=== PATIENT | male | born 1985 | race Caucasian/White ===

== ENCOUNTER 2022-04-13 19:38 | Inpatient (IN) | payer OTHER, SELFPAY ==
--- NOTE | 2022-04-13 | ECG_ITS ---
Test Reason : MEDCLEARANCE Blood Pressure : / mmHG Vent. Rate : 054 BPM Atrial Rate : 054 BPM P-R Int : 148 ms QRS Dur : 082 ms QT Int : 394 ms P-R-T Axes : 039 026 017 degrees QTc Int : 373 ms Sinus bradycardia with sinus arrhythmia Cannot rule out Anterior infarct , age undetermined Abnormal ECG When compared with ECG of 15-MAR-2008 01:00, ST no longer elevated in Inferior leads ST no longer elevated in Anterior leads Nonspecific T wave abnormality now evident in Inferior leads Nonspecific T wave abnormality now evident in Lateral leads Referred By: Meagan Heath Electronically Signed By:KASHIF PARRISH MD
[2022-04-13 20:11] VITALS: BP 101/72; PULSE 64; RESP 18; TEMP 36.7; O2SAT 95; BMI 30.7
[2022-04-13 20:26] VITALS: BP 102/66; PULSE 58; RESP 16; TEMP 36.6; O2SAT 97
[2022-04-13 20:54] LABS: MANUAL DIFF FLAG NO
[2022-04-13 20:55] LABS: Basophils Percent Auto 0.4 % (0-2); Eosinophils Absolute Auto 0.3 X10*3/uL (0.0-0.4); Eosinophils Percent Auto 3.8 % (0-4); Hematocrit 53.3 % (42.0-52.0); Hemoglobin 17.1 g/dl (14.0-18.0); Imm Gran Abs Auto 0.02 X10*3/uL (0.00-0.03); Imm Gran Pct Auto 0.3 % (0.0-0.4); Lymphocytes Absolute Auto 3.1 X10*3/uL (1.2-4.9); Lymphocytes Percent Auto 41.7 % (20-40); Mean Corpuscular HGB Conc 32.1 g/dl (31.0-36.0); Mean Corpuscular Hemoglobin 28.5 pg (27.0-33.0); Mean Corpuscular Volume 88.8 fL (80.0-98.0); Mean Platelet Volume 9.1 fL (9.4-12.4); Monocytes Absolute Auto 0.6 X10*3/uL (0.1-1.2); Monocytes Percent Auto 7.8 % (2-11); Neutrophils Absolute Auto 3.4 x10*3/uL (2.0-8.3); Platelet Count 314 X10*3/uL (160-400); Red Cell Distribution Width 12.8 % (11.0-16.0); White Blood Count 7.4 X10*3/uL (4.8-10.8)
[2022-04-13 20:59] LABS: Amphetamine Screen Urine Not Detected (Not Detect); Barbiturates, Urine Not Detected (Not Detect); Benzodiazepines Screen Urine Not Detected (Not Detect); Cannabinoid Screen Urine Not Detected (Not Detect); Cocaine Screen Urine POSITIVE (Not Detect); Fentanyl, urine Not Detected (Not Detect); Opiate Screen Urine Not Detected (Not Detect); Phencyclidine Screen Urine Not Detected (Not Detect)
[2022-04-13 21:15] LABS: COVID-19 Test Negative (Negative)
[2022-04-13 21:17] LABS: Ethanol < 10 mg/dL
[2022-04-13 21:22] LABS: Anion Gap 10 (12-20); Blood Urea Nitrogen 14 mg/dL (9-16); Calcium 9.8 mg/dL (8.4-10.2); Carbon Dioxide 34 mmol/L (22-29); Chloride 102 mmol/L (96-108); Creatinine Clr Calc Pharmacy 87.6; Estimated Glomerular Filt Rate > 60; Glucose Random 87 mg/dL (60-115); Magnesium 2.3 mg/dL (1.6-2.6); Sodium 141 mmol/L (135-145)
[2022-04-13 21:34] LABS: Acetaminophen LAB < 1 mcg/mL (<30); Salicylate < 5.0 mg/dL (15-30)
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
[2022-04-14] MEDS: traZODone HCL 50 MG TABLET PO (00:28)
[2022-04-14] MEDS: Sertraline HCL 50 MG TABLET PO ×2 (00:29→08:57)
[2022-04-14] MEDS: hydrOXYzine HCL 25 MG TABLET PO (00:29)
[2022-04-14 01:52] VITALS: BP 102/66; PULSE 58; RESP 16; TEMP 36.6; O2SAT 97
--- NOTE | 2022-04-14 01:55 | PC.NURSE ---
Pt signed a 3 day, up on 04/16/22
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
[2022-04-14] MEDS: QUEtiapine Fumarate 200 MG TABLET PO (08:57)
[2022-04-14] MEDS: Omeprazole 40 MG CAPSULE.DR PO (08:57)
[2022-04-14 09:00] VITALS: BP 94/52; PULSE 50; TEMP 36.1; O2SAT 98
[2022-04-14 09:19] LABS: Cholesterol 195 mg/dL; HDL Cholesterol 37 mg/dL; LDL Cholesterol Calculated 110 mg/dl; Magnesium 2.3 mg/dL (1.6-2.6); Triglycerides 243 mg/dL
[2022-04-14 09:31] LABS: Free T4 (Free Thyroxine) 1.05 ng/dL (0.71-1.85); Thyroid Stimulating Hormone 0.94 uIU/mL (0.32-4.0)
[2022-04-14 09:43] LABS: Estimated Average Glucose 103 mg/dL; Hemoglobin A1c % 5.2 %
[2022-04-14 09:58] LABS: Folate 8.2 ng/mL (> or = 4.0); Vitamin B12 494 pg/mL (200-900)
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
[2022-04-14] MEDS: methADONE HCl 20 MG/2 ML ORAL.CONC 55 MG PO (11:50)
[2022-04-14 21:25] VITALS: BP 98/59; PULSE 72; TEMP 36.6
[2022-04-14] MEDS: Mirtazapine 15 MG TABLET 45 MG PO (21:29)
[2022-04-14] MEDS: cloNIDine HCL 0.2 MG TABLET PO (21:30)
[2022-04-15 10:00] VITALS: BP 112/56; PULSE 54; RESP 16; TEMP 36.6; O2SAT 95
[2022-04-15] MEDS: cloNIDine HCL 0.2 MG TABLET PO ×2 (10:30→21:09)
[2022-04-15] MEDS: methADONE HCl 20 MG/2 ML ORAL.CONC 55 MG PO (10:30)
[2022-04-15] MEDS: Sertraline HCL 50 MG TABLET PO (10:31)
[2022-04-15] MEDS: Omeprazole 40 MG CAPSULE.DR PO (10:31)
--- NOTE | 2022-04-15 15:01 | P.PNPSI_ITS ---
Subjective Subjective Date of Service: 04/15/22 Reason For Visit: sent here for respite care Interim History: Patient says that he is in a good mood. He says that he normally stays away fr om people so has mostly wanted to remain in his room by himself which he says is typical for him. Patient denies any SI, HI or AVH. He says that he is pretty much back to his regular self and is looking forward to discharging. Patient can tell that he is feeling better because he is sleeping well, eating well and overall feels better. He agrees to increase his Zoloft to 75 mg since he remains prone to getting angry easily which he says can upset his . He denies any medication complaints. His 3 day notice is due tomorrow and he is looking for to discharge Mental Status Exam Mental Status Exam Narrative: Pt is alert and oriented; behavior is cooperative, friendly, calm; patient lying in bed but is appropriately engaged and and interacting with check writer; dressed in casual attire, multiple tattoos, with unkempt hair but adequate hygiene; mood is described as better and affect congruent, brighter; good eye contact; Speech is normal rate, but quiet; no psychomotor retardation present; thought process is organized and goal directed; Thought content is on tx; otherwise pertinent to relevant topics and without any delusional content, paranoid ideations or grandiosity; denies any SI/HI. no mention of AVH or illusions; Patients insight and judgment are intact. Diagnostics Vital Signs (24Hr): Vital Signs - 24 hr 04/14/22 21:25 04/15/22 10:00 Temperature 97.9 F 97.8 F Pulse Rate 72 54 Respiratory Rate 16 Blood Pressure 98/59 L 112/56 L Pulse Oximetry 95 Oxygen Delivery Method Room Air BMI result Body Mass Index 30.7 Labs Results: 04/13/22 20:50 04/13/22 20:50 Labs: Laboratory Results - last 48 hr 04/13/22 04/13/22 04/13/22 20:38 20:38 20:50 WBC 7.4 RBC 6.00 H Hgb 17.1 Hct 53.3 H MCV 88.8 MCH 28.5 MCHC 32.1 RDW 12.8 Plt Count 314 MPV 9.1 L Immature Gran % (Auto) 0.3 Neut % (Auto) 46.0 Lymph % (Auto) 41.7 H [place] % (Auto) 7.8 Eos % (Auto) 3.8 Baso % (Auto) 0.4 Lymph # (Auto) 3.1 [place] # (Auto) 0.6 Eos # (Auto) 0.3 Baso # (Auto) 0.0 Abs Immat Gran (auto) 0.02 Absolute Neuts (auto) 3.4 Absolute Nucleated RBC 0.000 Nucleated RBC % (auto) 0.0 Sodium Potassium Chloride Carbon Dioxide Anion Gap BUN Creatinine Estim Creat Clear Calc Estimated GFR Random Glucose Estimat Average Glucose Hemoglobin A1c % Calcium Magnesium Triglycerides Cholesterol LDL Cholesterol, Calc HDL Cholesterol Vitamin B12 Folate TSH Free T4 Salicylates Urine Opiates Screen Not Detected Urine Fentanyl Screen Not Detected Acetaminophen Ur Barbiturates Screen Not Detected Ur Phencyclidine Scrn Not Detected Ur Amphetamines Screen Not Detected U Benzodiazepines Scrn Not Detected Urine Cocaine Screen POSITIVE H U Marijuana (THC) Screen Not Detected Ethyl Alcohol COVID-19 (SANJAY) Negative COVID-19 FAD ? IO See Note 04/13/22 04/13/22 04/14/22 20:50 20:50 08:31 WBC RBC Hgb Hct MCV MCH MCHC RDW Plt Count MPV Immature Gran % (Auto) Neut % (Auto) Lymph % (Auto) [place] % (Auto) Eos % (Auto) Baso % (Auto) Lymph # (Auto) [place] # (Auto) Eos # (Auto) Baso # (Auto) Abs Immat Gran (auto) Absolute Neuts (auto) Absolute Nucleated RBC Nucleated RBC % (auto) Sodium 141 Potassium 5.0 Chloride 102 Carbon Dioxide 34 H Anion Gap 10 L BUN 14 Creatinine 1.24 Estim Creat Clear Calc 87.6 Estimated GFR > 60 Random Glucose 87 Estimat Average Glucose 103 Hemoglobin A1c % 5.2 Calcium 9.8 Magnesium 2.3 Triglycerides Cholesterol LDL Cholesterol, Calc HDL Cholesterol Vitamin B12 Folate TSH Free T4 Salicylates < 5.0 L Urine Opiates Screen Urine Fentanyl Screen Acetaminophen < 1 Ur Barbiturates Screen Ur Phencyclidine Scrn Ur Amphetamines Screen U Benzodiazepines Scrn Urine Cocaine Screen U Marijuana (THC) Screen Ethyl Alcohol < 10 COVID-19 (SANJAY) COVID-19 [employer] 04/14/22 04/14/22 08:31 08:31 WBC RBC Hgb Hct MCV MCH MCHC RDW Plt Count MPV Immature Gran % (Auto) Neut % (Auto) Lymph % (Auto) [place] % (Auto) Eos % (Auto) Baso % (Auto) Lymph # (Auto) [place] # (Auto) Eos # (Auto) Baso # (Auto) Abs Immat Gran (auto) Absolute Neuts (auto) Absolute Nucleated RBC Nucleated RBC % (auto) Sodium Potassium Chloride Carbon Dioxide Anion Gap BUN Creatinine Estim Creat Clear Calc Estimated GFR Random Glucose Estimat Average Glucose Hemoglobin A1c % Calcium Magnesium 2.3 Triglycerides 243 Cholesterol 195 LDL Cholesterol, Calc 110 HDL Cholesterol 37 Vitamin B12 494 Folate 8.2 TSH 0.94 Free T4 1.05 Salicylates Urine Opiates Screen Urine Fentanyl Screen Acetaminophen Ur Barbiturates Screen Ur Phencyclidine Scrn Ur Amphetamines Screen U Benzodiazepines Scrn Urine Cocaine Screen U Marijuana (THC) Screen Ethyl Alcohol COVID-19 (SANJAY) COVID-19 Clin Com Medications Medications Current Medications Acetaminophen (Acetaminophen 325 Mg Tablet) 650 mg PO Q6H PRN PRN Reason: Headache/Pain Mild Scale (1-3) Al Hydroxide/Mg Hydroxide (Magnesium Hydrox/Alum Hydrox 30 Ml Oral.Susp) 30 ml PO Q6H PRN PRN Reason: Heartburn/Nausea Clonidine HCl (Clonidine Hcl 0.2 Mg Tablet) 0.2 mg PO BID [facility]; Protocol Last Admin: 04/15/22 10:30 Dose: 0.2 mg Hydroxyzine HCl (Hydroxyzine Hcl 50 Mg Tablet) 50 mg PO Q6H PRN PRN Reason: Anxiety Magnesium Hydroxide (Milk Of Magnesia 30 Ml Oral.Susp) 30 ml PO DAILY PRN PRN Reason: Constipation Methadone HCl (Methadone Hcl 20 Mg/2 Ml Oral.Conc) 55 mg PO DAILY TANYA Last Admin: 04/15/22 10:30 Dose: 55 mg Mirtazapine (Mirtazapine 15 Mg Tablet) 45 mg PO BEDTIME TANYA Last Admin: 04/14/22 21:29 Dose: 45 mg Omeprazole (Omeprazole 40 Mg Capsule.Dr) 40 mg PO DAILY [facility] Last Admin: 04/15/22 10:31 Dose: 40 mg Pharmacy Consult (Consult Rx Perform Med Rec) 1 each MISCELLANE ONCE PRN PRN Reason: Consult order Sertraline HCl (Sertraline Hcl 25 Mg Tablet) 25 mg PO ONCE ONE Stop: 04/15/22 15:01 Sertraline HCl (Sertraline Hcl 25 Mg Tablet) 75 mg PO DAILY TANYA Trazodone HCl (Trazodone Hcl 50 Mg Tablet) 50 mg PO BEDTIME PRN PRN Reason: Insomnia Last Admin: 04/14/22 00:28 Dose: 50 mg Allergies Allergies Allergy/AdvReac Type Severity Reaction Status Date / Time No Known Allergies Allergy Verified 04/13/22 20:11 Assessment & Plan Assessment & Plan (1) MDD (major depressive disorder), recurrent, severe, with psychosis: Status: Acute Code(s): F33.3 - Major depressive disorder, recurrent, severe with psychotic symptoms (2) Chronic post-traumatic stress disorder (PTSD): Code(s): F43.12 - Post-traumatic stress disorder, chronic Plan Patient is a 36-year-old male with history of depression, anxiety, incarcerated is for felony and released about 6 weeks ago who presents with increased depression and anxiety in the face of having run out of his medications for the past 2 week only given a 30 day supply. -patient wants to get back on his meds; does not want to be on antipsychotic medication including Seroquel or Zyprexa saying it is too sedating and he does not need it and that on Vistaril, Remeron, Zoloft and clonidine he does very well. He had will leave diagnosis as MDD with psychosis and leave schizoaffective is a rule out. Patient also wants to get off methadone on to Suboxone and addiction consult placed. He denies any SI or HI and feels that once back on his meds he will be fine and ready for discharge 03/15 Patient says that he is in a good mood. He says that he normally stays away from people so has mostly wanted to remain in his room by himself which he says is typical for him. Patient denies any SI, HI or AVH. He says that he is pretty much back to his regular self and is looking forward to discharging. Patient can tell that he is feeling better because he is sleeping well, eating well and overall feels better. He agrees to increase his Zoloft to 75 mg since he remains prone to getting angry easily which he says can upset his . He denies any medication complaints. His 3 day notice is due tomorrow and he is looking for to discharge. Patient has remained in good behavioral and impulse control throughout his stay in the unit. He has mostly stayed in his room but as mentioned, this is typical behavior for him as he avoids social interactions in general. Patient is not in imminent risk for harm to self or others. His 3 day notice is doing his request for discharge honored Plan: Three day notice Q 15 minute checks Continue Remeron 45 mg Increase to Zoloft 75 mg continue hydroxyzine 50 mg p.r.n. continue clonidine 0.2 mg b.i.d. Discontinue Seroquel. Patient does not want Addiction consult placed to help patient cross taper off methadone and get onto Suboxone I spent minutes with the patient and/or on the patient floor today, grea ter than?50% of which was spent counseling/coordinating care. Reason for contiued inpatient stay Substantial Risk for: stable for discharge
[2022-04-15] MEDS: Sertraline HCL 25 MG TABLET PO (16:50)
--- NOTE | 2022-04-15 17:32 | P.EN_ITS ---
Event Note Date of Service: 04/15/22 Event Note: Addiction consult requested for patient as he requested to transition from methadoen to suboxone Upon reviewing chart, this sign writer hand noted that patient signed 3 day notice and would likely be discharging on 04/16. Discussed with attending provider. Agreed that starting transition not appropriate given discharge in one day. Patient can pursue this outpatient.
[2022-04-15 21:00] VITALS: BP 104/76; PULSE 64; TEMP 36.9
[2022-04-15] MEDS: hydrOXYzine HCL 50 MG TABLET PO (21:10)
[2022-04-15] MEDS: Mirtazapine 15 MG TABLET 45 MG PO (21:10)
--- NOTE | 2022-04-16 08:44 | P.DS_ITS ---
DS: Providers Provider Date of Service: 04/16/22 Date of admission: 04/13/22 23:11 Date of discharge: 04/16/22 Primary care physician: Unknown Physician Attending physician on admission: Dakota Vang Consults: 04/14/22 14:54 Addiction Medicine Routine Consulting Provider: Trista Cee Reason for consultation: get off methadone onto suboxone Attending physician on discharge: Dakota Vang DS: Diagnosis Discharge Diagnosis (1) MDD (major depressive disorder), recurrent, severe, with psychosis: Status: Acute (2) Chronic post-traumatic stress disorder (PTSD): DS: Medications Discharge Medications Home Medications: Previous Rx's Medication Instructions Recorded clonidine HCl 0.2 mg tablet 0.2 mg PO BID 30 days #60 tabs 04/16/22 hydroxyzine HCl 50 mg tablet 50 mg PO Q6H PRN Anxiety 30 days 04/16/22 #90 tabs methadone 10 mg/mL oral 55 mg (5.5 mL) PO DAILY #0 mL 04/16/22 concentrate (Methadose) mirtazapine 45 mg tablet 45 mg PO BEDTIME 30 days #30 tabs 04/16/22 omeprazole 40 mg capsule,delayed 40 mg PO DAILY 30 days #30 caps 04/16/22 release sertraline 25 mg tablet 75 mg PO DAILY 30 days #90 tabs 04/16/22 Mental Status Exam Mental Status Exam Narrative: Pt is alert and oriented; behavior is cooperative, friendly, calm; patient lying in bed but is appropriately engaged and and interacting with radio news writer; dressed in casual attire, multiple tattoos, with unkempt hair but adequate hygiene; mood is described as better and affect congruent, brighter; good eye contact; Speech is normal rate, but quiet; no psychomotor retardation present; thought process is organized and goal directed; Thought content is on tx; otherwise pertinent to relevant topics and without any delusional content, paranoid ideations or grandiosity; denies any SI/HI. no mention of AVH or illusions; Patients insight and judgment are intact. Data Data Completed and Pending Completed studies during hospitalization [Text1]: 04/13/22 04/13/22 04/13/22 20:38 20:38 20:50 WBC 7.4 RBC 6.00 H Hgb 17.1 Hct 53.3 H MCV 88.8 MCH 28.5 MCHC 32.1 RDW 12.8 Plt Count 314 MPV 9.1 L Immature Gran % (Auto) 0.3 Neut % (Auto) 46.0 Lymph % (Auto) 41.7 H [place] % (Auto) 7.8 Eos % (Auto) 3.8 Baso % (Auto) 0.4 Lymph # (Auto) 3.1 [place] # (Auto) 0.6 Eos # (Auto) 0.3 Baso # (Auto) 0.0 Abs Immat Gran (auto) 0.02 Absolute Neuts (auto) 3.4 Absolute Nucleated RBC 0.000 Nucleated RBC % (auto) 0.0 Sodium Potassium Chloride Carbon Dioxide Anion Gap BUN Creatinine Estim Creat Clear Calc Estimated GFR Random Glucose Estimat Average Glucose Hemoglobin A1c % Calcium Magnesium Triglycerides Cholesterol LDL Cholesterol, Calc HDL Cholesterol Vitamin B12 Folate TSH Free T4 Salicylates Urine Opiates Screen Not Detected Urine Fentanyl Screen Not Detected Acetaminophen Ur Barbiturates Screen Not Detected Ur Phencyclidine Scrn Not Detected Ur Amphetamines Screen Not Detected U Benzodiazepines Scrn Not Detected Urine Cocaine Screen POSITIVE H U Marijuana (THC) Screen Not Detected Ethyl Alcohol COVID-19 (SANJAY) Negative COVID-19 [employer] Com See Note 04/13/22 04/13/22 04/14/22 20:50 20:50 08:31 WBC RBC Hgb Hct MCV MCH MCHC RDW Plt Count MPV Immature Gran % (Auto) Neut % (Auto) Lymph % (Auto) [place] % (Auto) Eos % (Auto) Baso % (Auto) Lymph # (Auto) [place] # (Auto) Eos # (Auto) Baso # (Auto) Abs Immat Gran (auto) Absolute Neuts (auto) Absolute Nucleated RBC Nucleated RBC % (auto) Sodium 141 Potassium 5.0 Chloride 102 Carbon Dioxide 34 H Anion Gap 10 L BUN 14 Creatinine 1.24 Estim Creat Clear Calc 87.6 Estimated GFR > 60 Random Glucose 87 Estimat Average Glucose 103 Hemoglobin A1c % 5.2 Calcium 9.8 Magnesium 2.3 Triglycerides Cholesterol LDL Cholesterol, Calc HDL Cholesterol Vitamin B12 Folate TSH Free T4 Salicylates < 5.0 L Urine Opiates Screen Urine Fentanyl Screen Acetaminophen < 1 Ur Barbiturates Screen Ur Phencyclidine Scrn Ur Amphetamines Screen U Benzodiazepines Scrn Urine Cocaine Screen U Marijuana (THC) Screen Ethyl Alcohol < 10 COVID-19 (SANJAY) COVID-19 [employer] [facility] 04/14/22 04/14/22 08:31 08:31 WBC RBC Hgb Hct MCV MCH MCHC RDW Plt Count MPV Immature Gran % (Auto) Neut % (Auto) Lymph % (Auto) [place] % (Auto) Eos % (Auto) Baso % (Auto) Lymph # (Auto) [place] # (Auto) Eos # (Auto) Baso # (Auto) Abs Immat Gran (auto) Absolute Neuts (auto) Absolute Nucleated RBC Nucleated RBC % (auto) Sodium Potassium Chloride Carbon Dioxide Anion Gap BUN Creatinine Estim Creat Clear Calc Estimated GFR Random Glucose Estimat Average Glucose Hemoglobin A1c % Calcium Magnesium 2.3 Triglycerides 243 Cholesterol 195 LDL Cholesterol, Calc 110 HDL Cholesterol 37 Vitamin B12 494 Folate 8.2 TSH 0.94 Free T4 1.05 Salicylates Urine Opiates Screen Urine Fentanyl Screen Acetaminophen Ur Barbiturates Screen Ur Phencyclidine Scrn Ur Amphetamines Screen U Benzodiazepines Scrn Urine Cocaine Screen U Marijuana (THC) Screen Ethyl Alcohol COVID-19 (SANJAY) COVID-19 Clin Com DS: Summary Hospital Course Hospital Course: Patient is a 36-year-old male with history of depression, anxiety, incarcerated is for felony and released about 6 weeks ago who presents with increased depression and anxiety in the face of having run out of his medications for the past 2 week only given a 30 day supply.? On admission, patient was calm but isolated in his room and marginally cooperative. He reported mild AH and a sensation of being touched on his hands and feet and seeing upsetting shadows. He denied any SI or HI. Patient wanted to get back on his home medications of Vistaril, Remeron, Zoloft and clonidine on which he says he does very well; he does not want to be on antipsychotic medication including Seroquel or Zyprexa saying it is too sedating and he does not need it.? He feels that once back on his meds he will be fine and ready for discharge. Next day, Patient says that he is in a good mood that he slept well now that he is back on Remeron. Patient more engaged with radio news writer. Three day notice in. Regarding why he stays isolated in his room, he says this is the way he normally is, that he normally avoids groups of people that this is his baseline behavior. He continued to deny any SI, HI or AVH and reported that he is pretty much back to his regular self and is looking forward to discharging.? Patient can tell that he is feeling better because he is sleeping well, eating well and overall feels better.? He did agree to increase his Zoloft to 75 mg since he remains prone to getting angry easily which he says can upset his ; pt denies any medication side-effects. Team discussed case with patient's who agreed that he is safe and a appropriate for discharge home. Patient has remained in good behavioral and impulse control throughout his stay in the unit.? On day of discharge patient continued to report he was in a good mood and future oriented, with noticeably brighter affect; he continued to deny any SI or HI and said that all auditory hallucinations, tactile sensations and shadow illusions had resolved and he was looking forward to going home. Patient is not in imminent risk for harm to self or others.? His 3 day notice is due and his request for discharge honored Time spent discussing smoking cessation with patient: 3 to 10 minutes Status at Discharge Functional status at discharge: independent ambulation Overall status at discharge: patient is back to baseline Time Spent with Patient Time attestation: Total time spent providing and/or coordinating discharge services: Time spent: Less than 30 minutes Discharge Plan Discharge Patient Disposition: Home, Self-Care Discharge Diagnosis: MDD, recurrent severe with psychotic features, in full remission Referrals: Therapy Intake: Tressa Ruano [Other] - 04/21/22 11:00 am (This appointment is in-office at the above location. You must attend this intake appointment to be referred for a psychiatric medication management appointment within 30 days of your discharge from the hospital. If you need to switch the appointment to Telehealth, please contact CUST[employer]ER [employer]UTIONS ARCHITECT at the above number) [facility] [Other] - 1 Week Physician,Unknown J [Primary Care Provider] - 1 Week Discharge Medications: New sertraline 25 mg Tablet 75 mg PO DAILY 30 Days Qty: 90 0RF hydroxyzine HCl 50 mg Tablet 50 mg PO Q6H PRN (Reason: Anxiety) 30 Days Qty: 90 0RF methadone [Methadose] 10 mg/mL Concentrate 55 mg PO DAILY Qty: 0 0RF Rx Instructions: Partial Fill upon patient request. Continued omeprazole 40 mg capsule,delayed release(DR/EC) 40 mg PO DAILY 30 Days Qty: 30 0RF clonidine HCl 0.2 mg tablet 0.2 mg PO BID 30 Days Qty: 60 0RF mirtazapine 45 mg tablet 45 mg PO BEDTIME 30 Days Qty: 30 0RF Discontinued sertraline 50 mg tablet 50 mg PO QAM quetiapine 200 mg tablet 200 mg PO TID Discharge Orders: Discharge Order (Routine); Ordered 04/16/22 Ordered By: Dakota Vang Diet: regular diet Activity on Discharge: As tolerated Stand Alone Forms: Patient Portal Discharge page, Community Support Care Plan Goals: Maintain mood and safe behaviors Take medications as prescribed Continue to pursue sobriety Practice coping skills Continue with outpatient providers and reach out to them as needed Health Concerns: Mood stability and behaviors Plan of Treatment: Follow up with your psychiatric provider and other outpatient providers regarding above concerns Take medications as prescribed Assessment: Risk assessment at time of discharge:? Patient was interviewed prior to discharge and found to be fully oriented and without any SI or HI. Patient has insight and demonstrates good judgment in terms of wanting to pursue treatment. Patient is not in imminent risk of harm to self or others and has a safety plan that includes presenting to the closest ER or calling 911 if feeling unsafe.? Patient has been observed closely by nursing and unit staff throughout admission; patient has not engaged in any behaviors that suggest dangerousness to self or others and has demonstrated appropriate behaviors and impulse control Discharge Date/Time: 04/16/22 13:43
[2022-04-16] MEDS: methADONE HCl 20 MG/2 ML ORAL.CONC 55 MG PO (10:02)
[2022-04-16] MEDS: cloNIDine HCL 0.2 MG TABLET PO (10:02)
[2022-04-16] MEDS: Omeprazole 40 MG CAPSULE.DR PO (10:02)
[2022-04-16] MEDS: Sertraline HCL 25 MG TABLET 75 MG PO (10:02)
[2022-04-16] MEDS: Naloxone HCl Nasal TAKE HOME 4 MG SPRAY NOSTRILALT (10:06)
[2022-04-16 12:36] VITALS: BP 124/77; PULSE 86; RESP 16; O2SAT 96
--- NOTE | 2022-05-13 15:03 | P.EN_ITS ---
Event Note Date of Service: 05/13/22 Event Note: pt called for refill; he went to first appointment however it was only an intake and he did not get to meet with prescriber and is on verge of running out of meds. Appointment w/ prescriber is weeks away. Dielectric Tester agreed to place refill order.
--- NOTE | 2022-06-15 13:38 | PM.EVENT ---
Event Note Date of Service: 06/15/22 Event Note: called; pt needs 3 therapy appointment before he gets med appointment and so is asking for refills. Training And Development Rep agreed to refill
== END 2022-04-16 13:43 | disposition home or self-care (01) | DRG 751 ==
LOC: HO.ED 22:01 → HO.PM5 23:38
PROVIDERS: Registered Nurse; Admitting Provider Psychiatry & Neurology Psychiatry; Emergency Provider Emergency Medicine; Visit Provider Psychiatry & Neurology Psychiatry
DX: F33.3 Major depressive disorder, recurrent, severe with psychotic symptoms (principal); R45.851 Suicidal ideations; F43.12 Post-traumatic stress disorder, chronic; F41.9 Anxiety disorder, unspecified; F17.210 Nicotine dependence, cigarettes, uncomplicated; Z71.6 Tobacco abuse counseling; F11.20 Opioid dependence, uncomplicated; Z20.822 Contact with and (suspected) exposure to COVID-19; Z79.899 Other long term (current) drug therapy
CPT/HCPCS: 36415; 80048; 80061; 80143; 80179; 80307; 82077; 82607; 82746; 83036; 83735; 84439; 84443; 85025; 87635; 92950; 93005; 99285

== ENCOUNTER 2022-10-10 11:59 | Emergency (ER) | payer MEDICAID, SELFPAY ==
--- NOTE | ~2022-10-10 | XR_ITS ---
EXAMINATION: XR HAND, RIGHT CLINICAL INFORMATION: Pain and swelling first and second digits. History of trauma. COMPARISON: None TECHNIQUE: PA, lateral, and oblique views of the right hand. FINDINGS: Bone alignment is normal. No fracture or dislocation. Joint spaces are normal. There is soft tissue swelling of the second and third fingers. XR/XR hand RT min 3V IMPRESSION: Soft tissue swelling of the second and third fingers. No fracture or dislocation.
--- NOTE | 2022-10-10 12:18 | ED_ITS ---
HPI - General Adult General Chief complaint: Extremity Injury, Upper <MARTHA Slater - Last Filed: 10/10/22 12:24> Stated complaint: R hand swollen <MARTHA Slater - Last Filed: 10/10/22 12:24> Time Seen by Provider: 10/10/22 12:45 <MARTHA Slater - Last Filed: 10/10/22 12:24> Source: patient <MARTHA Garcia - Last Filed: 10/10/22 15:06> Mode of arrival: ambulatory <MARTHA Garcia - Last Filed: 10/10/22 15:06> History of Present Illness HPI narrative: 37-year-old male with a past medical history PTSD, depression, GERD, presenting to the ED complaining of right hand pain worse at 2nd and 3rd digits S/P crushing fingers in tool box about 2 weeks ago. States was putting to walks in car when closed in fingers. Reports gradual worsening pain and swelling with decreased ROM secondary to pain. Reports associated paresthesias. Denies fever, chills, weakness, drainage, or injury to other area <MARTHA Garcia - Last Filed: 10/10/22 15:06> Related Data Home medications: Previous Rx's Medication Instructions Recorded clonidine HCl 0.2 mg tablet 0.2 mg PO BID 30 days #60 tabs 04/16/22 hydroxyzine HCl 50 mg tablet 50 mg PO Q6H PRN Anxiety 30 days 04/16/22 #90 tabs methadone 10 mg/mL oral 55 mg (5.5 mL) PO DAILY #0 mL 04/16/22 concentrate (Methadose) mirtazapine 45 mg tablet 45 mg PO BEDTIME 30 days #30 tabs 04/16/22 omeprazole 40 mg capsule,delayed 40 mg PO DAILY 30 days #30 caps 04/16/22 release sertraline 25 mg tablet 75 mg PO DAILY 30 days #90 tabs 04/16/22 clonidine HCl 0.2 mg tablet 0.2 mg PO BID 30 days #60 tabs 05/13/22 mirtazapine 45 mg tablet 45 mg PO BEDTIME 30 days #30 tabs 05/13/22 omeprazole 40 mg capsule,delayed 40 mg PO DAILY 30 days #30 caps 05/13/22 release quetiapine 200 mg tablet (Seroquel) 200 mg PO TID 30 days #90 tabs 05/13/22 sertraline 25 mg tablet (Zoloft) 75 mg PO DAILY 30 days #90 tabs 05/13/22 clonidine HCl 0.2 mg tablet 0.2 mg PO BID 30 days #60 tabs 06/15/22 hydroxyzine HCl 50 mg tablet 50 mg PO TID PRN anxiety 30 days 06/15/22 #90 tabs mirtazapine 30 mg tablet (Remeron) 45 mg PO BEDTIME 30 days #45 tabs 06/15/22 sertraline 50 mg tablet (Zoloft) 75 mg PO DAILY 30 days #45 tabs 06/15/22 cephalexin 500 mg capsule 500 mg PO QID 7 days #28 caps 10/10/22 doxycycline hyclate 100 mg tablet 100 mg PO BID 7 days #14 tabs 10/10/22 <MARTHA Slater Last Filed: 10/10/22 12:24> Allergies/adverse reactions: Allergies Allergy/AdvReac Type Severity Reaction Status Date / Time No Known Allergies Allergy Verified 04/13/22 20:11 <MARTHA Slater Last Filed: 10/10/22 12:24> Review of Systems Review of Systems: Constitutional: No Fever, No Chills ENT/Mouth: No Ear Pain, No Nasal Congestion, No sore throat, No Rhinorrhea, No Swallowing Difficulty Cardiovascular: No Chest Pain, No SOB Respiratory: No Cough, No Sputum, No Wheezing Gastrointestinal: No Nausea, No Vomiting, No Diarrhea, No Constipation, No Abdominal pain Genitourinary: No Dysuria, No Hematuria, No Flank Pain Musculoskeletal: + joint pain, No Myalgias, + Joint Swelling Skin: + Skin Lesions, No rash Neuro: No Weakness, No Numbness, + Paresthesias <MARTHA Garcia Last Filed: 10/10/22 15:06> Yes all other systems are reviewed and are negative <MARTHA Garcia Last Filed: 10/10/22 15:06> Constitutional: Constitutional: Reports as per HPI <MARTHA Garcia Last Filed: 10/10/22 15:06> [facility] Past Medical History Attestation statement: The following information was validated with the patient. <MARTHA Garcia - Last Filed: 10/10/22 15:06> Medical History: Medical History Chronic post-traumatic stress disorder (PTSD) Depression GERD (gastroesophageal reflux disease) Suicidal ideation (~04/13/22) Suicidal ideation <MARTHA Slater - Last Filed: 10/10/22 12:24> Social History Social History: Social History Household Members: Family and Children Housing: House Do you presently have visiting nurse or other home services: No Unable to assess alcohol history related to: Refusing to respond Patient Tobacco Use Status: Current someday Tobacco user Tobacco use type: Cigarette Cigarettes Per Day: 0.5 e-Cigarette/Vaping Use: Former Use Second Hand Smoke Exposure: Yes Advance Directives: No Advance Directives Information Provided: No service: No Sexual orientation: Did not discuss <MARTHA Slater - Last Filed: 10/10/22 12:24> Physical Exam ED Vital Signs: Vital Signs - 24 hr 10/10/22 12:21 Temperature 98.3 F Pulse Rate 82 Respiratory Rate 16 Blood Pressure 117/73 Pulse Oximetry 97 Oxygen Delivery Method Room Air BMI result Body Mass Index 27.3 <MARTHA Slater - Last Filed: 10/10/22 12:24> Vital Signs - 24 hr 10/10/22 12:21 Temperature 98.3 F Pulse Rate 82 Respiratory Rate 16 Blood Pressure 117/73 Pulse Oximetry 97 Oxygen Delivery Method Room Air BMI result Body Mass Index 27.3 <MARTHA Garcia - Last Filed: 10/10/22 15:06> Const Other: appears in pain, pacing around the room <MARTHA Garcia Last Filed: 10/10/22 15:06> General: cooperative and no acute distress <MARTHA Garcia Last Filed: 10/10/22 15:06> Orientation/consciousness: patient oriented x3 <MARTHA Garcia Last Filed: 10/10/22 15:06> Limitations: no limitations <MARTHA Garcia Last Filed: 10/10/22 15:06> HENID Head: Yes normal to inspection and Yes atraumatic <Niesha Castellanos PA - Last Filed: 10/10/22 15:06> Ears: hearing grossly normal bilaterally <Niesha Castellanos PA - Last Filed: 10/10/22 15:06> General nose exam: Normal external nose present <Niesha Castellanos PA - Last Filed: 10/10/22 15:06> Face and sinus: Yes normal facial exam <Niesha Castellanos PA - Last Filed: 10/10/22 15:06> Eyes General: appearance normal, both eyes and all related structures <Niesha Castellanos PA - Last Filed: 10/10/22 15:06> EOM: EOMs intact bilaterally <Niesha Castellanos PA - Last Filed: 10/10/22 15:06> Neck Neck: Yes normal visual inspection and Yes no meningeal signs <Niesha Castellanos PA - Last Filed: 10/10/22 15:06> Resp Effort & Inspection: normal respiratory effort and no respiratory distress <Niesha Castellanos PA - Last Filed: 10/10/22 15:06> Cardio Rate: regular rate <Niesha Castellanos PA - Last Filed: 10/10/22 15:06> Heart sounds: S1 normal heart sound present and S2 normal heart sound present <Niesha leonard PA - Last Filed: 10/10/22 15:06> Peripheral pulses: radial pulses present and ulnar radial pulses present <Niesha Castellanos PA - Last Filed: 10/10/22 15:06> Skin Rashes: no rashes <Niesha Castellanos PA - Last Filed: 10/10/22 15:06> Neuro General: patient oriented x3, tone normal and no meningeal signs <Niesha Castellanos PA - Last Filed: 10/10/22 15:06> Gait exam (Neuro): Normal gait present <MARTHA Garcia - Last Filed: 10/10/22 15:06> Extrem Other: please refer to image above. 2nd and 3rd digit with noted erythema, swelling, warmth, and exquisite tenderness to palpation. Decreased ROM secondary to swelling/ pain. Second digit circumferential erythema. + Paronychia's noted as depicted. No wrist/snuffbox tenderness. Neurovascularly intact. Sensation intact to light touch <MARTHA Garcia - Last Filed: 10/10/22 15:06> Course Course Course Narrative: RME - 37 yo male with history of severe depression w/ psychosis, PTSD who presents to the ER for evaluation of worsening right 1st and 2nd finger pain, swelling after he banged it in a took box about 2 weeks ago. Recurrent minor traumas with worsening pain and swelling. 4-5 days ago developed yellow discoloration below the nail bed - pain and swelling is circumferential with in ability to fully extend or flex digits 1 and 2. No IVDA. No hx DM. Will start with XR digits. Will likely need to be drained today. no tenderness of the palm. Plan per main ED provider. <MARTHA Slater - Last Filed: 10/10/22 12:24> RME - 37 yo male with history of severe depression w/ psychosis, PTSD who presents to the ER for evaluation of worsening right 1st and 2nd finger pain, swelling after he banged it in a took box about 2 weeks ago. Recurrent minor traumas with worsening pain and swelling. 4-5 days ago developed yellow discoloration below the nail bed - pain and swelling is circumferential with inability to fully extend or flex digits 1 and 2. No IVDA. No hx DM. Will start with XR digits. Will likely need to be drained today. no tenderness of the palm. Plan per main ED provider. -I&D successful > Orthopedics consulted XR hand RT min 3V IMPRESSION: Soft tissue swelling of the second and third fingers. No fracture or dislocation. - case discussed with orthopedics who recommended dose of IV antibiotics, warm water soaks x4 days, and discharge home with p.o. antibiotics. - leukocytosis of 12.8, CRP elevated to 10.8 >> patient eloped the ED prior to IV antibiotic administration or my re- evaluation. I called patient and spoke with patient and , stressed imp ortance of warm soaks at home and close orthopedic hand follow-up, supplied with phone number. Sent doxycycline and Keflex to the pharmacy <MARTHA Garcia - Last Filed: 10/10/22 15:06> Medications Administered Discontinued Medications Generic Name Dose Route Start Last Admin Trade Name Freq PRN Reason Stop Dose Admin Ibuprofen 800 mg 10/10/22 12:51 10/10/22 13:21 Ibuprofen 800 Mg Tablet PO 10/10/22 12:52 800 mg ONCE ONE Administration Lidocaine HCl 2 ml 10/10/22 12:50 10/10/22 14:00 Lidocaine Hcl 1 % Mpf 2 Ml Vial INFILTRATI 10/10/22 12:51 2 ml ONCE ONE Administration Lidocaine HCl 2 ml 10/10/22 12:51 10/10/22 14:41 Lidocaine Hcl 1 % Mpf 2 Ml Vial INFILTRATI 10/10/22 12:52 Not Given ONCE ONE Oxycodone HCl 5 mg 10/10/22 13:17 10/10/22 13:25 Oxycodone Hcl Immed Release 5 Mg Tablet PO 10/10/22 13:18 5 mg ONCE ONE Administration <MARTHA Slater - Last Filed: 10/10/22 12:24> Medications Administered Discontinued Medications Generic Name Dose Route Start Last Admin Trade Name Freq PRN Reason Stop Dose Admin Ibuprofen 800 mg 10/10/22 12:51 10/10/22 13:21 Ibuprofen 800 Mg Tablet PO 10/10/22 12:52 800 mg ONCE ONE Administration Lidocaine HCl 2 ml 10/10/22 12:50 10/10/22 14:00 Lidocaine Hcl 1 % Mpf 2 Ml Vial INFILTRATI 10/10/22 12:51 2 ml ONCE ONE Administration Lidocaine HCl 2 ml 10/10/22 12:51 10/10/22 14:41 Lidocaine Hcl 1 % Mpf 2 Ml Vial INFILTRATI 10/10/22 12:52 Not Given ONCE ONE Oxycodone HCl 5 mg 10/10/22 13:17 10/10/22 13:25 Oxycodone Hcl Immed Release 5 Mg Tablet PO 10/10/22 13:18 5 mg ONCE ONE Administration <MARTHA Garcia - Last Filed: 10/10/22 15:06> Procedures Abscess I/D Site: hand <MARTHA Garcia - Last Filed: 10/10/22 15:06> Side (if applicable): right ( 2nd and 3rd digit paronychia) <MARTHA Garcia - Last Filed: 10/10/22 15:06> Local Anesthetic: lidocaine 1% <MARTHA Garcia - Last Filed: 10/10/22 15:06> Amount of anesthesia used (mL): 5 <MARTHA Garcia - Last Filed: 10/10/22 15:06> Technique: incised with blade <MARTHA Garcia - Last Filed: 10/10/22 15:06> Packing used?: none <MARTHA Garcia - Last Filed: 10/10/22 15:06> Medical Decision Making Medical Decision Making MDM Narrative: 37-year-old male with a past medical history PTSD, depression, GERD, presenting to the ED complaining of right hand pain worse at 2nd and 3rd digits S/P crushing fingers in tool box about 2 weeks ago. on exam vital signs stable, NAD, appears in pain, physical exam as above, please refer to image. Concern for crush injury/ fracture and paronychia with overlying cellulitis vs tenosynovitis. Lower suspicion for septic joint. Lower suspicion for tendon rupture plan: labs, lactic/blood culture, X-rays, PO Motrin, digital block/I&D <MARTHA Garcai - Last Filed: 10/10/22 15:06> Differential Diagnoses: Differential diagnosis ( as above) <MARTHA Garcia - Last Filed: 10/10/22 15:06> Lab Attestation: I reviewed the patient's lab results. <MARTHA Garcia - Last Filed: 10/10/22 15:06> Discharge Plan Discharge Clinical Impression: Paronychia of finger, Cellulitis, Crush injury <MARTHA Slater - Last Filed: 10/10/22 12:24> Patient Disposition: Elopement <MARTHA Slater - Last Filed: 10/10/22 12:24> Instructions: Paronychia (ED), Cellulitis (ED), Warm Compress or Soak (ED) <MARTHA Slater - Last Filed: 10/10/22 12:24> Additional Instructions: you need to take doxycycline and Keflex. Which are antibiotics. Perform warm soaks at home. keep a close eye on the area, if his worsening, becomes more swollen, continues to have drainage, you are unable to move her fingers or high fever return to the emergency department Please follow-up with the hand specialist, call tomorrow to make an appointment <MARTHA Slater - Last Filed: 10/10/22 12:24> Prescriptions: New cephalexin 500 mg capsule 500 mg PO QID 7 Days Qty: 28 0RF doxycycline hyclate 100 mg tablet 100 mg PO BID 7 Days Qty: 14 0RF No Action sertraline 25 mg Tablet 75 mg PO DAILY 30 Days Qty: 90 0RF hydroxyzine HCl 50 mg Tablet 50 mg PO Q6H PRN (Reason: Anxiety) 30 Days Qty: 90 0RF methadone [Methadose] 10 mg/mL Concentrate 55 mg PO DAILY Qty: 0 0RF Rx Instructions: Partial Fill upon patient request. omeprazole 40 mg capsule,delayed release(DR/EC) 40 mg PO DAILY 30 Days Qty: 30 0RF clonidine HCl 0.2 mg tablet 0.2 mg PO BID 30 Days Qty: 60 0RF mirtazapine 45 mg tablet 45 mg PO BEDTIME 30 Days Qty: 30 0RF clonidine HCl 0.2 mg tablet 0.2 mg PO BID 30 Days Qty: 60 1RF mirtazapine 45 mg tablet 45 mg PO BEDTIME 30 Days Qty: 30 1RF quetiapine [Seroquel] 200 mg tablet 200 mg PO TID 30 Days Qty: 90 1RF sertraline [Zoloft] 25 mg tablet 75 mg PO DAILY 30 Days Qty: 90 1RF omeprazole 40 mg capsule,delayed release(DR/EC) 40 mg PO DAILY 30 Days Qty: 30 0RF sertraline [Zoloft] 50 mg tablet 75 mg PO DAILY 30 Days Qty: 45 1RF mirtazapine [Remeron] 30 mg tablet 45 mg PO BEDTIME 30 Days Qty: 45 1RF hydroxyzine HCl 50 mg tablet 50 mg PO TID PRN (Reason: anxiety) 30 Days Qty: 90 1RF clonidine HCl 0.2 mg tablet 0.2 mg PO BID 30 Days Qty: 60 1RF <MARTHA Slater - Last Filed: 10/10/22 12:24> Referrals: [facility] [Provider Group] - 2 days <MARTHA Slater - Last Filed: 10/10/22 12:24>
[2022-10-10 12:21] VITALS: BP 117/73; PULSE 82; RESP 16; TEMP 36.8; O2SAT 97; BMI 27.3
[2022-10-10] MEDS: Ibuprofen 800 MG TABLET PO (13:21)
[2022-10-10] MEDS: oxyCODONE HCl Immed Release 5 MG TABLET PO (13:25)
[2022-10-10 13:51] LABS: MANUAL DIFF FLAG NO
[2022-10-10] MEDS: Lidocaine HCl 1 % MPF 2 ML VIAL INFILTRATI (14:00)
[2022-10-10 14:03] LABS: Lactic Acid 1.3 mmol/L (0.5-2.0)
[2022-10-10 14:05] LABS: Anion Gap 13 (12-20); Blood Urea Nitrogen 9 mg/dL (9-16); C Reactive Protein 10.81 mg/dL (< or = 0.50); Calcium 9.1 mg/dL (8.4-10.2); Carbon Dioxide 28 mmol/L (22-29); Chloride 103 mmol/L (96-108); Creatinine Clr Calc Pharmacy 129.3; Estimated Glomerular Filt Rate > 60; Glucose Random 99 mg/dL (60-115); Potassium 4.5 mmol/L (3.3-5.1); Sodium 139 mmol/L (135-145)
[2022-10-10 14:06] LABS: Basophils Percent Auto 0.3 % (0-2); Eosinophils Absolute Auto 0.1 X10*3/uL (0.0-0.4); Hematocrit 45.1 % (42.0-52.0); Hemoglobin 15.2 g/dl (14.0-18.0); Imm Gran Abs Auto 0.04 X10*3/uL (0.00-0.03); Imm Gran Pct Auto 0.3 % (0.0-0.4); Lymphocytes Absolute Auto 1.6 X10*3/uL (1.2-4.9); Lymphocytes Percent Auto 12.6 % (20-40); Mean Corpuscular HGB Conc 33.7 g/dl (31.0-36.0); Mean Corpuscular Hemoglobin 28.3 pg (27.0-33.0); Mean Corpuscular Volume 83.8 fL (80.0-98.0); Mean Platelet Volume 9.1 fL (9.4-12.4); Monocytes Absolute Auto 0.8 X10*3/uL (0.1-1.2); Monocytes Percent Auto 6.5 % (2-11); Neutrophils Absolute Auto 10.1 x10*3/uL (2.0-8.3); Neutrophils Percent Auto 79.3 % (45-73); Platelet Count 354 X10*3/uL (160-400); Red Blood Count 5.38 X10*6/uL (4.60-5.80); Red Cell Distribution Width 13.5 % (11.0-16.0); White Blood Count 12.8 X10*3/uL (4.8-10.8)
[2022-10-10 14:33] LABS: Erythrocyte Sedimentation Rate 7 MM/HR (0-15)
--- NOTE | 2022-10-10 14:56 | PC.NURSE ---
pt would not stay and wait for the provider to discuss his test results and would not let me start an IV, I will come back later , he has things to do. Niesha lees.
== END 2022-10-10 15:07 | disposition left against medical advice (07) ==
PROVIDERS: Physician Assistant; Emergency Provider Emergency Medicine Emergency Medical Services
DX: L03.011 Cellulitis of right finger (principal); Z79.899 Other long term (current) drug therapy
CPT/HCPCS: 26010; 36415; 73130; 80048; 83605; 85025; 85652; 86140; 87040; 99283; 99284

== ENCOUNTER 2023-03-28 18:17 | Emergency (ER) | payer OTHER, MEDICAID, SELFPAY ==
[2023-03-28 18:23] VITALS: BP 130/79; PULSE 104; RESP 18; TEMP 36.9; O2SAT 97; BMI 24.2
--- NOTE | 2023-03-28 18:25 | ED_ITS ---
HPI - General Adult General Chief complaint: Psychiatric Symptoms Stated complaint: Crisis/SI Time Seen by Provider: 03/28/23 18:41 Source: patient Mode of arrival: ambulatory Limitations: no limitations History of Present Illness HPI narrative: Patient comes to the emergency room complaining of suicidal ideation with no plan. Patient states that he had transportation issues, could not go to the clinic where he was being seen for substance abuse. Patient states that he had a relapse and notes using drugs again. Denies homicidal ideation. Related Data Home Medications Medication Instructions Recorded Confirmed clonidine HCl 0.2 mg tablet 0.2 mg PO BID 03/28/23 03/28/23 hydroxyzine pamoate 50 mg capsule 50 mg PO BID PRN Anxiety 03/28/23 03/28/23 mirtazapine 45 mg tablet 45 mg PO BEDTIME 03/28/23 03/28/23 sertraline 25 mg tablet 75 mg PO DAILY 03/28/23 03/28/23 Previous Rx's Medication Instructions Recorded methadone 10 mg/mL oral 55 mg (5.5 mL) PO DAILY #0 mL 04/16/22 concentrate (Methadose) omeprazole 40 mg capsule,delayed 40 mg PO DAILY 30 days #30 caps 04/16/22 release Allergies Allergy/AdvReac Type Severity Reaction Status Date / Time No Known Allergies Allergy Verified 04/13/22 20:11 Review of Systems Review of Systems: Constitutional : No Weight loss, No Fever, No Chills, No Night Sweats, No Fatigue, No Malaise ENT/Mouth : No Hearing loss, No Ear Pain, No Nasal Congestion, No Sinus Pain, No Hoarseness, No sore throat, No Rhinorrhea, No Swallowing Difficulty Eyes: No Eye Pain, No Swelling, No Redness, No Foreign Body, No Discharge, No Vision Changes Cardiovascular : No Chest Pain, No SOB, No Dyspnea on Exertion, No Orthopnea, No Edema, No Palpitations Respiratory : No Cough, No Sputum, No Wheezing, No Smoke Exposure, No Dyspnea Gastrointestinal : No Nausea, No Vomiting, No Diarrhea, No Constipation, No abdominal Pain, No Hematochezia, No Melena Genitourinary : no irregular bleeding, No Dysuria, No Urinary Frequency, No Hematuria, No Urinary Incontinence, No Urgency, No Flank Pain, No Urinary Flow Changes, No Hesitancy Musculoskeletal : No joint pain, No Myalgias, No Joint Swelling Skin : No Skin Lesions, No rash Neuro : No Weakness, No Numbness, No Paresthesias, No Loss of Consciousness, No Dizziness, No Headache Psych : No Anxiety/Panic, complaining of vague SI, no HI, admits to substance abuse Heme/Lymph: No Bruising, No Bleeding,No Lymphadenopathy Endocrine : No Polyuria, No Polydipsia, No Temperature Intolerance PMFSH Past Medical History Medical History Chronic post-traumatic stress disorder (PTSD) Depression GERD (gastroesophageal reflux disease) Suicidal ideation (~04/13/22) Suicidal ideation Social History Social History Household Members: Family and Children Housing: House Do you presently have visiting nurse or other home services: No Unable to assess alcohol history related to: Refusing to respond Patient Tobacco Use Status: Current someday Tobacco user Tobacco use type: Cigarette Cigarettes Per Day: 0.5 e-Cigarette/Vaping Use: Former Use Second Hand Smoke Exposure: Yes Advance Directives: No Advance Directives Information Provided: Yes service: No Sexual orientation: Did not discuss Physical Exam ED Vital Signs: Vital Signs - 24 hr 03/28/23 18:23 Temperature 98.5 F Pulse Rate 104 H Respiratory Rate 18 Blood Pressure 130/79 Pulse Oximetry 97 Oxygen Delivery Method Room Air BMI result Body Mass Index 24.2 Const Other: Appearance: Alert. Oriented X3. No acute distress. Eyes: Pupils equal, round and reactive to light. ENT: Pharynx normal. Neck: Normal inspection. Neck supple. No lymph nodes noted. No crepitus CVS: Normal heart rate and rhythm. Pulses normal. Normal S1 and S2 Respiratory: No respiratory distress. Breath sounds normal. No Wheezing. No rales Abdomen: Soft and nontender. No rigidity. No distention. Skin: Skin warm and dry. Normal skin color. Normal skin turgor. Extremities: No lower extremity edema. No Lacerations. No Rash Neuro: Oriented X 3. No motor deficit. No sensory deficit. Moving all extremities. No slurred speech. CN 2 through 12 grossly intact Psych: calm, cooperative, normal affect Course Course Course Narrative: RME: 37 yold male presents to the ED for depression and Suicidal ideation but with no plan. No physical complaints. labs and CLARK ordered Reevaluation(s) Reevaluation #1: -labs pending -care team consult pending -physician observation started at 19:00 Medical Decision Making Medical Decision Making MDM Narrative: -the care team evaluated the patient. Patient is not suicidal, patient states that he feels very bad about using drugs again. Patient missed his methadone dose this morning and therefore use drugs. Patient is story, patient would like to be discharged home. Care team spoke with the patient's girlfriend where the patient is staying, patient will be going home. Patient will go to his methadone clinic tomorrow in the morning. Lab Data 03/28/23 19:35 03/28/23 19:35 Labs: Lab Results 03/28/23 03/28/23 03/28/23 Range/Units 18:48 18:48 19:35 WBC 8.3 (4.8-10.8) X10*3/uL RBC 5.44 (4.60-5.80) X10*6/uL Hgb 15.8 (14.0-18.0) g/dl Hct 48.3 (42.0-52.0) % MCV 88.8 (80.0-98.0) fL MCH 29.0 (27.0-33.0) pg MCHC 32.7 (31.0-36.0) g/dl RDW 13.3 (11.0-16.0) % Plt Count 344 (160-400) X10*3/uL MPV 8.7 L (9.4-12.4) fL Immature Gran % (Auto) 0.4 (0.0-0.4) % Neut % (Auto) 67.5 (45-73) % Lymph % (Auto) 24.3 (20-40) % Converse % (Auto) 6.0 (2-11) % Eos % (Auto) 1.3 (0-4) % Baso % (Auto) 0.5 (0-2) % Lymph # (Auto) 2.0 (1.2-4.9) X10*3/uL Converse # (Auto) 0.5 (0.1-1.2) X10*3/uL Eos # (Auto) 0.1 (0.0-0.4) X10*3/uL Baso # (Auto) 0.0 (0.0-0.2) X10*3/uL Abs Immat Gran (auto) 0.03 (0.00-0.03) X10*3/uL Absolute Neuts (auto) 5.6 (2.0-8.3) x10*3/uL Absolute Nucleated RBC 0.000 (0.0-0.012) X10*3/uL Nucleated RBC % (auto) 0.0 (0.0-0.2) /100WBC Sodium (135-145) mmol/L Potassium (3.3-5.1) mmol/L Chloride (96-108) mmol/L Carbon Dioxide (22-29) mmol/L Anion Gap (12-20) BUN (9-16) mg/dL Creatinine (0.5-1.4) mg/dL Estim Creat Clear Calc Estimated GFR Random Glucose (60-115) mg/dL Calcium (8.4-10.2) mg/dL Total Bilirubin (0.0-1.0) mg/dL AST (5-37) U/L ALT (0-40) U/L Alkaline Phosphatase (39-117) U/L Total Protein (6.5-8.0) g/dL Albumin (3.5-5.0) g/dL Urine Color Dark Yellow Urine Appearance Clear Urine pH 5.5 (5.0-9.0) Ur Specific [place] >= 1.030 H (1.005-1.025) Urine Protein Trace (Neg-Trace) mg/dL Urine Glucose (UA) Negative (Negative) mg/dL Urine Ketones Trace (Negative) mg/dL Urine Blood Negative (Negative) Urine Nitrite Negative (Negative) Ur Leukocyte Esterase Negative (Negative) Urine Opiates Screen POSITIVE H (Not Detect) Urine Fentanyl Screen POSITIVE H (Not Detect) Ur Barbiturates Screen Not Detected (Not Detect) Ur Phencyclidine Scrn Not Detected (Not Detect) Ur Amphetamines Screen Not Detected (Not Detect) U Benzodiazepines Scrn Not Detected (Not Detect) Urine Cocaine Screen POSITIVE H (Not Detect) U Marijuana (THC) Screen Not Detected (Not Detect) Ethyl Alcohol mg/dL COVID-19 ([facility]) (Negative) COVID-19 Clin Com 03/28/23 03/28/23 Range/Units 19:35 19:46 WBC (4.8-10.8) X10*3/uL RBC (4.60-5.80) X10*6/uL Hgb (14.0-18.0) g/dl Hct (42.0-52.0) % MCV (80.0-98.0) fL MCH (27.0-33.0) pg MCHC (31.0-36.0) g/dl RDW (11.0-16.0) % Plt Count (160-400) X10*3/uL MPV (9.4-12.4) fL Immature Gran % (Auto) (0.0-0.4) % Neut % (Auto) (45-73) % Lymph % (Auto) (20-40) % Converse % (Auto) (2-11) % Eos % (Auto) (0-4) % Baso % (Auto) (0-2) % Lymph # (Auto) (1.2-4.9) X10*3/uL Converse # (Auto) (0.1-1.2) X10*3/uL Eos # (Auto) (0.0-0.4) X10*3/uL Baso # (Auto) (0.0-0.2) X10*3/uL Abs Immat Gran (auto) (0.00-0.03) X10*3/uL Absolute Neuts (auto) (2.0-8.3) x10*3/uL Absolute Nucleated RBC (0.0-0.012) X10*3/uL Nucleated RBC % (auto) (0.0-0.2) /100WBC Sodium 141 (135-145) mmol/L Potassium 4.4 (3.3-5.1) mmol/L Chloride 105 (96-108) mmol/L Carbon Dioxide 26 (22-29) mmol/L Anion Gap 14 (12-20) BUN 12 (9-16) mg/dL Creatinine 0.86 (0.5-1.4) mg/dL Estim Creat Clear Calc 109.9 Estimated GFR > 60 Random Glucose 70 (60-115) mg/dL Calcium 9.8 D (8.4-10.2) mg/dL Total Bilirubin 0.5 (0.0-1.0) mg/dL AST 19 (5-37) U/L ALT 19 (0-40) U/L Alkaline Phosphatase 69 (39-117) U/L Total Protein 7.8 (6.5-8.0) g/dL Albumin 4.8 (3.5-5.0) g/dL Urine Color Urine Appearance Urine pH (5.0-9.0) Ur Specific [place] (1.005-1.025) Urine Protein (Neg-Trace) mg/dL Urine Glucose (UA) (Negative) mg/dL Urine Ketones (Negative) mg/dL Urine Blood (Negative) Urine Nitrite (Negative) Ur Leukocyte Esterase (Negative) Urine Opiates Screen (Not Detect) Urine Fentanyl Screen (Not Detect) Ur Barbiturates Screen (Not Detect) Ur Phencyclidine Scrn (Not Detect) Ur Amphetamines Screen (Not Detect) U Benzodiazepines Scrn (Not Detect) Urine Cocaine Screen (Not Detect) U Marijuana (THC) Screen (Not Detect) Ethyl Alcohol < 10 mg/dL COVID-19 ([facility]) Negative (Negative) COVID-19 Clin Com See Note Discharge Plan Discharge Clinical Impression: Suicidal ideation Patient Disposition: Home, Self-Care Additional Instructions: Please follow-up with your primary care physician tomorrow. If you have any worsening or new symptoms, please return to the emergency room or call 911 Prescriptions: No Action methadone [Methadose] 10 mg/mL Concentrate 55 mg PO DAILY Qty: 0 0RF Rx Instructions: Partial Fill upon patient request. omeprazole 40 mg capsule,delayed release(DR/EC) 40 mg PO DAILY 30 Days Qty: 30 0RF hydroxyzine pamoate 50 mg capsule 50 mg PO BID PRN (Reason: Anxiety) clonidine HCl 0.2 mg tablet 0.2 mg PO BID sertraline 25 mg tablet 75 mg PO DAILY mirtazapine 45 mg tablet 45 mg PO BEDTIME
[2023-03-28 19:25] LABS: Amphetamine Screen Urine Not Detected (Not Detect); Barbiturates, Urine Not Detected (Not Detect); Benzodiazepines Screen Urine Not Detected (Not Detect); Cannabinoid Screen Urine Not Detected (Not Detect); Cocaine Screen Urine POSITIVE (Not Detect); Fentanyl, urine POSITIVE (Not Detect); Opiate Screen Urine POSITIVE (Not Detect); Phencyclidine Screen Urine Not Detected (Not Detect)
[2023-03-28 19:27] LABS: Appearance Urine Clear; Color Urine Dark Yellow; Glucose Urine UA Negative (Negative); Leukocyte Esterase Urine Negative (Negative); Nitrite Urine Negative (Negative); PH 5.5 (5.0-9.0); Specific Gravity - Urine >= 1.030 (1.005-1.025); Urine Blood Negative (Negative); Urine Ketones Trace mg/dL (Negative); Urine Protein Trace mg/dL (Neg-Trace)
[2023-03-28 19:42] LABS: MANUAL DIFF FLAG NO
[2023-03-28 19:46] LABS: Basophils Percent Auto 0.5 % (0-2); Eosinophils Absolute Auto 0.1 X10*3/uL (0.0-0.4); Eosinophils Percent Auto 1.3 % (0-4); Hematocrit 48.3 % (42.0-52.0); Hemoglobin 15.8 g/dl (14.0-18.0); Imm Gran Abs Auto 0.03 X10*3/uL (0.00-0.03); Imm Gran Pct Auto 0.4 % (0.0-0.4); Lymphocytes Percent Auto 24.3 % (20-40); Mean Corpuscular HGB Conc 32.7 g/dl (31.0-36.0); Mean Corpuscular Volume 88.8 fL (80.0-98.0); Mean Platelet Volume 8.7 fL (9.4-12.4); Monocytes Absolute Auto 0.5 X10*3/uL (0.1-1.2); Neutrophils Absolute Auto 5.6 x10*3/uL (2.0-8.3); Neutrophils Percent Auto 67.5 % (45-73); Platelet Count 344 X10*3/uL (160-400); Red Blood Count 5.44 X10*6/uL (4.60-5.80); Red Cell Distribution Width 13.3 % (11.0-16.0); White Blood Count 8.3 X10*3/uL (4.8-10.8)
[2023-03-28 20:05] LABS: Alanine Aminotransferase 19 U/L (0-40); Albumin Level 4.8 g/dL (3.5-5.0); Alkaline Phosphatase 69 U/L (39-117); Anion Gap 14 (12-20); Aspartate Amino Transferase 19 U/L (5-37); Bilirubin Total 0.5 mg/dL (0.0-1.0); Blood Urea Nitrogen 12 mg/dL (9-16); Calcium 9.8 mg/dL (8.4-10.2); Carbon Dioxide 26 mmol/L (22-29); Chloride 105 mmol/L (96-108); Creatinine Clr Calc Pharmacy 109.9; Estimated Glomerular Filt Rate > 60; Ethanol < 10 mg/dL; Glucose Random 70 mg/dL (60-115); Potassium 4.4 mmol/L (3.3-5.1); Sodium 141 mmol/L (135-145); Total Protein 7.8 g/dL (6.5-8.0)
[2023-03-28 20:08] LABS: COVID-19 Test Negative (Negative); IDNOW Serial# 6674DD1D
== END 2023-03-28 21:16 | disposition home or self-care (01) ==
PROVIDERS: Physician Assistant; Emergency Provider Emergency Medicine
DX: F33.1 Major depressive disorder, recurrent, moderate (principal); R45.851 Suicidal ideations; F17.210 Nicotine dependence, cigarettes, uncomplicated; Z71.6 Tobacco abuse counseling; Z20.822 Contact with and (suspected) exposure to COVID-19; Z20.828 Contact with and (suspected) exposure to other viral communicable diseases; Z79.899 Other long term (current) drug therapy
CPT/HCPCS: 36415; 80053; 80307; 81003; 85025; 87635; 99283; 99284; S9485

== ENCOUNTER 2024-04-12 00:04 | Emergency (ER) | payer MEDICAID, SELFPAY ==
[2024-04-12 00:12] VITALS: BP 110/80; PULSE 98; RESP 18; TEMP 36.5; O2SAT 94; BMI 29.8
== END 2024-04-12 03:38 | disposition left against medical advice (07) ==
LOC: HO.ED 03:37
PROVIDERS: Emergency Provider Emergency Medicine
DX: S41.102A Unspecified open wound of left upper arm, initial encounter (principal); X58.XXXA Exposure to other specified factors, initial encounter; Y93.9 Activity, unspecified; Y92.9 Unspecified place or not applicable; Y99.9 Unspecified external cause status
CPT/HCPCS: 99281